=== PATIENT | male | born 1990 | race Caucasian/White ===

== ENCOUNTER 2023-07-15 23:10 | Emergency (ER) | payer OTHER ==
[2023-07-16 00:20] LABS: BASOPHILS PERCENT AUTO 0.3 % (0.3-3.8); EOSINOPHILS ABSOLUTE AUTO 0.1 x10-3/uL (0.0-0.6); EOSINOPHILS PERCENT AUTO 2.5 % (0.1-6.8); HEMATOCRIT 43.7 % (38.3-50.1); HEMOGLOBIN 14.9 g/dL (12.9-17.7); LYMPHOCYTES ABSOLUTE AUTO 1.4 x10-3/uL (0.5-4.5); MEAN CORPUSCULAR HEMOGLOBIN 30.9 pg (27.0-33.3); MEAN CORPUSCULAR HGB CONC 34.1 g/dL (28.7-35.3); MEAN CORPUSCULAR VOLUME 90.7 fL (80.8-98.7); MEAN PLATELET VOLUME 8.9 fL (6.7-11.0); MONOCYTES ABSOLUTE AUTO 0.6 x10-3/uL (0.0-1.2); MONOCYTES PERCENT AUTO 11.5 % (5.5-15.2); NEUTROPHILS ABSOLUTE AUTO 3.1 x10-3/uL (1.7-6.9); NEUTROPHILS PERCENT AUTO 58.7 % (40.3-71.8); PLATELET COUNT,PLT 193 x10(3)uL (117-477); RED BLOOD CELL COUNT 4.82 x10(6)uL (3.90-5.90); RED CELL DISTRIBUTION WIDTH 13.6 % (12.4-15.0); WHITE BLOOD CELL COUNT,WBC 5.3 x10-3/uL (3.2-10.1)
[2023-07-16 00:24] LABS: BLOOD UREA NITROGEN,BUN 6 mg/dL (7-18); BUN/CREATININE RATIO 7.5 (9-20); CALCIUM 9.4 mg/dL (8.6-10.2); CARBON DIOXIDE,CO2 31 mmol/L (21-32); CHLORIDE,CL 106 mmol/L (100-110); CREATININE 0.8 mg/dL (0.70-1.30); ESTIMATED GFR 119 mL/min (>60); GLUCOSE RANDOM 94 mg/dL (80-116); POTASSIUM,K 3.8 mmol/L (3.5-5.3); SODIUM,NA 140 mmol/L (135-145)
[2023-07-16 00:40] LABS: A/G RATIO 0.9; ALBUMIN 3.4 g/dL (3.5-5.2); ALKALINE PHOSPHATASE 67 IU/L (56-112); BILIRUBIN TOTAL 0.6 mg/dL (0.1-1.3); PROTEIN TOTAL,TP 7.3 g/dL (6.0-8.0)
[2023-07-16 00:44] LABS: ALANINE AMINOTRANSFERASE,ALT 543 U/L (12-36); ASPARTATE AMNIOTRANSFERASE,AST 288 IU/L (5-25)
[2023-07-16 02:26] LABS: AMPHETAMINES SCREEN, URINE POSITIVE (NEGATIVE); BARBITURATE SCREEN,URINE NEGATIVE (NEGATIVE); BENZODIAZEPINES SCREEN,URINE NEGATIVE (NEGATIVE); BUPRENORPHINE SCREEN,URINE NEGATIVE (NEGATIVE); METHADONE SCREEN, URINE NEGATIVE (NEGATIVE); METHAMPHETAMINE SCREEN, URINE POSITIVE (NEGATIVE); OXYCODONE SCREEN,URINE NEGATIVE (NEGATIVE); PROPOXYPHENE SCREEN,URINE NEGATIVE (NEGATIVE); THC SCREEN,URINE POSITIVE (NEGATIVE)
== END 2023-07-16 03:27 ==
LOC: FB.ED 23:10
DX: R07.2 Precordial pain (principal); R74.01 Elevation of levels of liver transaminase levels; F19.20 Other psychoactive substance dependence, uncomplicated; Z91.038 Other insect allergy status; Z91.048 Other nonmedicinal substance allergy status
CPT/HCPCS: 36415; 71045; 80053; 80307; 83690; 84484; 85025; 93005; 93010; 99283; 99285

== ENCOUNTER 2023-08-11 12:40 | Emergency (ER) | payer OTHER ==
[2023-08-11] MEDS ORDERED: Sodium Chloride 0.9% 10 ML Syringe FLUSH PRN (12:48)
[2023-08-11 12:50] LABS: BASOPHILS PERCENT AUTO 0.2 % (0.3-3.8); EOSINOPHILS ABSOLUTE AUTO 0.1 x10-3/uL (0.0-0.6); EOSINOPHILS PERCENT AUTO 2.1 % (0.1-6.8); HEMOGLOBIN 15.7 g/dL (12.9-17.7); LYMPHOCYTES ABSOLUTE AUTO 1.3 x10-3/uL (0.5-4.5); LYMPHOCYTES PERCENT AUTO 25.2 % (15.8-45.3); MEAN CORPUSCULAR HGB CONC 34.1 g/dL (28.7-35.3); MEAN CORPUSCULAR VOLUME 90.8 fL (80.8-98.7); MEAN PLATELET VOLUME 9.1 fL (6.7-11.0); MONOCYTES ABSOLUTE AUTO 0.5 x10-3/uL (0.0-1.2); MONOCYTES PERCENT AUTO 8.8 % (5.5-15.2); NEUTROPHILS ABSOLUTE AUTO 3.3 x10-3/uL (1.7-6.9); NEUTROPHILS PERCENT AUTO 63.7 % (40.3-71.8); PLATELET COUNT,PLT 134 x10(3)uL (117-477); RED BLOOD CELL COUNT 5.07 x10(6)uL (3.90-5.90); RED CELL DISTRIBUTION WIDTH 13.4 % (12.4-15.0); WHITE BLOOD CELL COUNT,WBC 5.2 x10-3/uL (3.2-10.1)
[2023-08-11 12:54] LABS: BLOOD UREA NITROGEN,BUN 8 mg/dL (7-18); BUN/CREATININE RATIO 11.4 (9-20); CALCIUM 9.1 mg/dL (8.6-10.2); CARBON DIOXIDE,CO2 33 mmol/L (21-32); CHLORIDE,CL 103 mmol/L (100-110); CREATININE 0.7 mg/dL (0.70-1.30); ESTIMATED GFR 124 mL/min (>60); GLUCOSE RANDOM 92 mg/dL (80-116); POTASSIUM,K 4.2 mmol/L (3.5-5.3); SODIUM,NA 140 mmol/L (135-145)
[2023-08-11 13:05] LABS: ALBUMIN 3.6 g/dL (3.5-5.2); ALKALINE PHOSPHATASE 58 IU/L (56-112); ASPARTATE AMNIOTRANSFERASE,AST 31 IU/L (5-25); BILIRUBIN TOTAL 1.2 mg/dL (0.1-1.3); PROTEIN TOTAL,TP 7.1 g/dL (6.0-8.0)
[2023-08-11 13:07] LABS: ALANINE AMINOTRANSFERASE,ALT 226 U/L (12-36)
[2023-08-11] MEDS ORDERED: Ketorolac 30 MG/ML SDV IVPUSH ONE (13:35)
== END 2023-08-11 14:04 | disposition home or self-care (01) ==
LOC: FB.ED 12:40
DX: G40.909 Epilepsy, unspecified, not intractable, without status epilepticus (principal); Z91.012 Allergy to eggs; Z91.018 Allergy to other foods
CPT/HCPCS: 80053; 85025; 93005; 96374; 99285-25; J1885

== ENCOUNTER 2023-09-23 18:00 | Emergency (ER) | payer OTHER, MEDICAID ==
[2023-09-23] MEDS ORDERED: Haloperidol Lactate 5 MG/ML SDV IM ONE (18:02)
[2023-09-23] MEDS ORDERED: LORazepam 2 MG/ML SDV IVPUSH ONE ×3 (18:05→20:10)
[2023-09-23] MEDS ORDERED: LORazepam 2 MG/ML SDV IM STA (18:05)
[2023-09-23] MEDS ORDERED: Etomidate 2 MG/ML 20 ML SDV IVPUSH ONE (18:15)
[2023-09-23] MEDS ORDERED: Rocuronium 50 MG/5 ML Vial IV ONE (18:24)
[2023-09-23] MEDS: Rocuronium 100 MG/10 ML MDV IV STA ×3 (18:24→20:17)
[2023-09-23] MEDS ORDERED: Sodium Chloride 0.9% 10 ML Syringe FLUSH PRN (18:44)
[2023-09-23 18:46] LABS: BASE EXCESS VENOUS,POC -19 mmol/L (-2 - 3+); PCO2 VENOUS,POC 74 mmHg (41-51); PH VENOUS,POC 6.93 pH Units (7.32-7.43)
[2023-09-23] MEDS ORDERED: Naloxone 0.4 MG/ML SDV IVPUSH PRN (18:46)
[2023-09-23] MEDS ORDERED: HYDROmorphone 2 MG/ML SDV IVPUSH ONE (18:46)
[2023-09-23] MEDS ORDERED: Sodium Chloride 0.9% 1,000 ML IV ONE ×2 (18:54→19:11)
[2023-09-23 18:56] LABS: HEMOGLOBIN 15.7 g/dL (12.9-17.7); MEAN CORPUSCULAR HGB CONC 40.1 g/dL (28.7-35.3); MEAN CORPUSCULAR VOLUME 94.9 fL (80.8-98.7); MEAN PLATELET VOLUME 9.7 fL (6.7-11.0); PLATELET COUNT,PLT 126 x10(3)uL (117-477); RED BLOOD CELL COUNT 4.85 x10(6)uL (3.90-5.90); RED CELL DISTRIBUTION WIDTH 13.4 % (12.4-15.0); WHITE BLOOD CELL COUNT,WBC 25.4 x10-3/uL (3.2-10.1)
[2023-09-23 18:57] LABS: LYMPHOCYTES PERCENT MAN 20 % (13-37); MONOCYTES PERCENT MAN 6 % (4-12); SEG NEUTROPHILS PERCENT MAN 74 % (46-82)
[2023-09-23] MEDS ORDERED: Rocuronium 50 MG/5 ML Vial IVPUSH ONE (18:57)
[2023-09-23] MEDS ORDERED: LORazepam 2 MG/ML SDV ONE (18:58)
[2023-09-23] MEDS ORDERED: Sodium Chloride 0.9% 1,000 ML IV SCH (19:00)
[2023-09-23 19:13] LABS: BILIRUBIN,URINE NEGATIVE (NEGATIVE); GLUCOSE,URINE NORMAL (NORMAL); KETONES,URINE 15 mg/dL (NEGATIVE); LEUKOCYTE ESTERASE,URINE NEGATIVE (NEGATIVE); NITRITE,URINE NEGATIVE (NEGATIVE); OCCULT BLOOD,URINE LARGE (NEGATIVE); PROTEIN,URINE 500 mg/dL (NEGATIVE); UROBILINOGEN,URINE NORMAL (NEGATIVE)
[2023-09-23] MEDS ORDERED: Calcium Gluconate 10% 1 GM/10 ML SDV ONE (19:17)
[2023-09-23 19:18] LABS: AMPHETAMINES SCREEN, URINE NEGATIVE (NEGATIVE); BARBITURATE SCREEN,URINE NEGATIVE (NEGATIVE); BENZODIAZEPINES SCREEN,URINE NEGATIVE (NEGATIVE); METHADONE SCREEN, URINE NEGATIVE (NEGATIVE); METHAMPHETAMINE SCREEN, URINE NEGATIVE (NEGATIVE); OXYCODONE SCREEN,URINE NEGATIVE (NEGATIVE); THC SCREEN,URINE NEGATIVE (NEGATIVE)
[2023-09-23] MEDS ORDERED: Calcium Gluconate 10% 1 GM/10 ML SDV IVPUSH ONE (19:18)
[2023-09-23 19:19] LABS: BUPRENORPHINE SCREEN,URINE NEGATIVE (NEGATIVE)
[2023-09-23] MEDS ORDERED: Sodium Bicarbonate 8.4% 50 MEQ/50 ML Syringe IVPUSH ONE (19:19)
[2023-09-23 19:23] LABS: APPEARANCE,URINE SLIGHTLY CLOUDY (CLEAR); COLOR,URINE YELLOW (YELLOW)
[2023-09-23 19:24] LABS: AMORPHOUS SEDIMENT,URINE FEW; BACTERIA,URINE MODERATE (NS); MUCUS,URINE FEW (NS); RBC,URINE 0-5 (0-5); SQUAMOUS EPITHELIAL CELLS,UR OCCASIONAL (NS,R,O); WBC,URINE 0-5 (0-5)
[2023-09-23] MEDS ORDERED: Insulin Regular, Human 100 Units/ML 3 ML Vial IV ONE (19:28)
[2023-09-23] MEDS ORDERED: 50% Dextrose in Water 50 ML Syringe IVPUSH PRN (19:28)
[2023-09-23] MEDS ORDERED: 50% Dextrose in Water 50 ML Syringe IVPUSH ONE (19:28)
[2023-09-23] MEDS ORDERED: Albuterol 0.5% 5 MG/ML Neb Soln 20 ML Bottle NEB ONE (19:28)
[2023-09-23] MEDS ORDERED: Glucagon,Human Recombinant 1 MG Vial IM PRN (19:28)
[2023-09-23 19:42] LABS: ALANINE AMINOTRANSFERASE,ALT 29 U/L (12-36); ALBUMIN 3.4 g/dL (3.5-5.2); ALKALINE PHOSPHATASE 49 IU/L (56-112); ASPARTATE AMNIOTRANSFERASE,AST 25 IU/L (5-25); BILIRUBIN TOTAL 0.4 mg/dL (0.1-1.3); BLOOD UREA NITROGEN,BUN 12 mg/dL (7-18); BUN/CREATININE RATIO 10.9 (9-20); CALCIUM 8.1 mg/dL (8.6-10.2); CARBON DIOXIDE,CO2 20 mmol/L (21-32); CHLORIDE,CL 105 mmol/L (100-110); CREATININE 1.1 mg/dL (0.70-1.30); ESTIMATED GFR 90 mL/min (>60); GLUCOSE RANDOM 189 mg/dL (80-116); POTASSIUM,K 3.8 mmol/L (3.5-5.3); PROTEIN TOTAL,TP 6.8 g/dL (6.0-8.0); SODIUM,NA 139 mmol/L (135-145)
[2023-09-23 19:48] LABS: LACTIC ACID 7.5 mmol/L (0.4-2.0)
[2023-09-23 19:51] LABS: ACETAMINOPHEN < 2 ug/mL (<2); SALICYLATE 1.2 mg/dL (<2.8)
== END 2023-09-23 20:26 ==
LOC: FB.ED 18:00
DX: T71.162A Asphyxiation due to hanging, intentional self-harm, initial encounter (principal); J96.02 Acute respiratory failure with hypercapnia; R63.0 Anorexia; R45.1 Restlessness and agitation; Z91.018 Allergy to other foods; Z91.030 Bee allergy status
CPT/HCPCS: 31500; 36415; 43752; 51702; 70450; 71045; 72125; 80053; 80143; 80179; 80307; 81001; 82947; 83605; 83735; 84484; 85025; 93005; 96361; 96372; 96374; 96375; 96376; 99285; J0612; J1170; J1630; J1815; J2060; J3490; J7030